=== PATIENT | female | born 1985 | race Caucasian/White ===

== ENCOUNTER 2016-05-28 10:39 | Observation (INO) | payer OTHER ==
[2016-05-28 12:03] LABS: BASO % 0.3 % (0.1-1.2); EOS % 0.3 % (0.7-5.8); GRAN # 1.9 10_X3_uL (1.6-6.1); GRAN % 64.4 % (34.0-71.1); HEMATOCRIT 30.9 % (34-45); HEMOGLOBIN 9.2 g/dL (11.2-15.7); LYMPH # 0.8 10_X3_uL (1.2-3.7); LYMPH % 26.8 % (19.3-51.7); MEAN CORPUSCULAR HGB CONC 29.8 g/dL (32.0-36.0); MEAN CORPUSCULAR VOLUME 73.9 fL (79-95); MEAN PLATELET VOLUME 12.1 fl (7.5-11.5); MONO # 0.2 10_X3_uL (0.2-0.9); MONO % 8.2 % (4.7-12.5); PLATELET COUNT 276 x10_3/uL (182-369); RED BLOOD COUNT 4.18 x10_6/uL (3.9-5.2); RED CELL DISTRIBUTION WIDTH 17.8 % (11.7-14.4); WHITE BLOOD COUNT 2.9 x10_3/uL (4.0-10.0)
[2016-05-28 12:17] LABS: ALBUMIN 4.4 gm/dL (3.4-5.0); ALKALINE PHOSPHATASE 71 U/L (50-136); ALT/SGPT 80 U/L (3.5-33.9); AST/SGOT 123 U/L (7.04-26.96); BILIRUBIN,TOTAL 0.42 mg/dL (0.0-1.0); BLOOD UREA NITROGEN 7 mg/dL (7-18); CALCIUM 8.9 mg/dL (8.7-10.7); CARBON DIOXIDE 25 mmol/L (21-32); CREATININE 0.6 mg/dL (0.6-1.3); GLUCOSE,RANDOM 97 mg/dL (70-99); POTASSIUM 3.8 mmol/L (3.5-5.1); SODIUM 139 mmol/L (136-145); TOTAL PROTEIN 7.8 gm/dL (6.4-8.2)
[2016-05-28 17:16] LABS: SERUM IRON 17 ug/dl (50-170); UIBC 414 ug/dL (135-370)
[2016-05-28 17:31] LABS: FERRITIN 37.28 ng/mL (11-307); FOLATE 17.04 ng/mL (3.17-24.25)
[2016-05-28 17:54] LABS: URINE BILIRUBIN NEGATIVE (NEGATIVE); URINE BLOOD NEGATIVE (NEGATIVE); URINE GLUCOSE (UA) NORMAL (NORMAL); URINE KETONE NEGATIVE (NEGATIVE); URINE LEUKOCYTE ESTERASE TRACE (NEGATIVE); URINE NITRATE NEGATIVE (NEGATIVE); URINE PROTEIN NEGATIVE (NEGATIVE); UROBILINOGEN NORMAL mg/dL (<1.0)
[2016-05-28 18:33] LABS: URINE BACTERIA TRACE (NONE SEEN); URINE MUCUS TRACE; URINE SQUAMOUS EPITHELIAL CELL 0-10 /[HPF] (NONE SEEN); URINE WBC 0-5 /[HPF] (0-5)
[2016-05-29 07:41] LABS: HEMATOCRIT 29.7 % (34-45); HEMOGLOBIN 8.7 g/dL (11.2-15.7); MEAN CORPUSCULAR HEMOGLOBIN 21.9 pg (27.0-33.0); MEAN CORPUSCULAR HGB CONC 29.3 g/dL (32.0-36.0); MEAN CORPUSCULAR VOLUME 74.8 fL (79-95); MEAN PLATELET VOLUME 11.9 fl (7.5-11.5); RED BLOOD COUNT 3.97 x10_6/uL (3.9-5.2); WHITE BLOOD COUNT 3.4 x10_3/uL (4.0-10.0)
[2016-05-29 07:58] LABS: ALBUMIN 3.7 gm/dL (3.4-5.0); ALKALINE PHOSPHATASE 62 U/L (50-136); ALT/SGPT 65 U/L (3.5-33.9); AST/SGOT 77 U/L (7.04-26.96); BLOOD UREA NITROGEN 8 mg/dL (7-18); CALCIUM 8.2 mg/dL (8.7-10.7); CARBON DIOXIDE 23 mmol/L (21-32); CREATININE 0.6 mg/dL (0.6-1.3); GLUCOSE,RANDOM 93 mg/dL (70-99); POTASSIUM 3.9 mmol/L (3.5-5.1); SODIUM 142 mmol/L (136-145); TOTAL PROTEIN 6.7 gm/dL (6.4-8.2)
[2016-05-31 11:46] LABS: HBS AG SCREEN Non Reactive (NR); HCV Non Reactive (NR)
== END 2016-05-30 02:50 | disposition left against medical advice (07) ==
LOC: MS 10:39
PROVIDERS: ADMIT Family Medicine
DX: E86.0 Dehydration (principal); R50.9 Fever, unspecified; R51 Headache; R11.0 Nausea; R42 Dizziness and giddiness; I10 Essential (primary) hypertension; E78.5 Hyperlipidemia, unspecified; E03.9 Hypothyroidism, unspecified; J30.9 Allergic rhinitis, unspecified; K75.81 Nonalcoholic steatohepatitis (NASH); E28.2 Polycystic ovarian syndrome; J02.9 Acute pharyngitis, unspecified; R19.7 Diarrhea, unspecified; D64.9 Anemia, unspecified; N92.0 Excessive and frequent menstruation with regular cycle; J11.1 Influenza due to unidentified influenza virus with other respiratory manifestations; Z98.51 Tubal ligation status; Z79.899 Other long term (current) drug therapy
CPT/HCPCS: 36415; 71020; 80053; 80074; 81001; 82607; 82728; 82746; 83540; 83550; 84443; 85025; 86308; 86644; 86645; 96361; 96365; 96366; 96367; 99070; G0328-QW; G0378; J7050

== ENCOUNTER 2016-06-02 18:13 | Emergency (ER) | payer OTHER ==
[2016-06-02 20:38] LABS: EOS % 0.3 % (0.7-5.8); GRAN # 4.2 10_X3_uL (1.6-6.1); GRAN % 69.5 % (34.0-71.1); HEMATOCRIT 33.5 % (34-45); HEMOGLOBIN 10.2 g/dL (11.2-15.7); LYMPH # 1.5 10_X3_uL (1.2-3.7); LYMPH % 25.4 % (19.3-51.7); MEAN CORPUSCULAR HEMOGLOBIN 22.2 pg (27.0-33.0); MEAN CORPUSCULAR HGB CONC 30.4 g/dL (32.0-36.0); MEAN CORPUSCULAR VOLUME 72.8 fL (79-95); MEAN PLATELET VOLUME 11.4 fl (7.5-11.5); MONO # 0.3 10_X3_uL (0.2-0.9); MONO % 4.8 % (4.7-12.5); PLATELET COUNT 307 x10_3/uL (182-369); RED CELL DISTRIBUTION WIDTH 18.4 % (11.7-14.4); WHITE BLOOD COUNT 6.1 x10_3/uL (4.0-10.0)
[2016-06-02 20:56] LABS: ALBUMIN 4.6 gm/dL (3.4-5.0); ALKALINE PHOSPHATASE 81 U/L (50-136); ALT/SGPT 44 U/L (3.5-33.9); AMYLASE 39 U/L (15.62-74.58); AST/SGOT 41 U/L (7.04-26.96); BILIRUBIN,TOTAL 0.52 mg/dL (0.0-1.0); BLOOD UREA NITROGEN 7 mg/dL (7-18); CALCIUM 9.4 mg/dL (8.7-10.7); CARBON DIOXIDE 24 mmol/L (21-32); CREATININE 0.6 mg/dL (0.6-1.3); GLUCOSE,RANDOM 85 mg/dL (70-99); LIPASE 31 U/L (6.75-60.75); POTASSIUM 3.8 mmol/L (3.5-5.1); SODIUM 138 mmol/L (136-145); TOTAL PROTEIN 7.9 gm/dL (6.4-8.2)
[2016-06-02 20:59] LABS: URINE BILIRUBIN NEGATIVE (NEGATIVE); URINE BLOOD NEGATIVE (NEGATIVE); URINE GLUCOSE (UA) NORMAL (NORMAL); URINE KETONE NEGATIVE (NEGATIVE); URINE LEUKOCYTE ESTERASE 2+ (NEGATIVE); URINE NITRATE NEGATIVE (NEGATIVE); URINE PROTEIN NEGATIVE (NEGATIVE); UROBILINOGEN NORMAL mg/dL (<1.0)
[2016-06-02 21:03] LABS: URINE RBC 0-5 /[HPF] (0-2); URINE SQUAMOUS EPITHELIAL CELL TNTC /[HPF] (NONE SEEN); URINE WBC >15 /[HPF] (0-5)
[2016-06-02 21:04] LABS: URINE BACTERIA 1+ (NONE SEEN)
== END 2016-06-02 21:53 | disposition home or self-care (01) ==
LOC: ER 18:13
PROVIDERS: General Practice
DX: E86.0 Dehydration (principal); R53.1 Weakness; N39.0 Urinary tract infection, site not specified; R74.8 Abnormal levels of other serum enzymes; B37.0 Candidal stomatitis; K21.9 Gastro-esophageal reflux disease without esophagitis; E07.9 Disorder of thyroid, unspecified; E28.2 Polycystic ovarian syndrome; Z79.899 Other long term (current) drug therapy
CPT/HCPCS: 36415; 80053; 81001; 82150; 83690; 84443; 85025; 96360; 99070; 99283-25